=== PATIENT | male | born 1975 | race Two or more races ===

== ENCOUNTER 2017-03-26 12:58 | Emergency (ER) | payer MEDICAID, OTHER ==
[~2017-03-26] VITALS: Ht 172.7 cm; Wt 90.7 kg
[2017-03-26] MEDS ORDERED: DEXTROSE 50% SYRINGE 50 ML IV ONE (22:03)
[2017-03-27 14:19] LABS: BUN/Creatinine Ratio 12.1; Potassium 3.5 mmol/L (3.5-5.1)
[2017-03-27 15:25] LABS: Acetaminophen < 2.0 ug/mL (10-30); Salicylate < 1.7 mg/dL (2.8-20.0)
[2017-03-27 15:39] LABS: Basophils # (auto) 0.1 uL
[2017-03-27 15:45] LABS: Basophils % (auto) 0.5 % (0.0-2.0); Eosinophils # (auto) 0.1 uL; Eosinophils % (auto) 0.6 % (0.0-7.0); Hematocrit 50.6 % (41.0-53.0); Hemoglobin 17.5 g/dL (13.5-17.5); Lymphocytes # (auto) 2.8 uL; Mean Corpuscular Hemoglobin 31.8 pg (28.0-32.0); Mean Corpuscular Hgb Conc. 34.6 g/dL (32.0-36.0); Monocytes # (auto) 1.4 uL; Monocytes % (auto) 12.3 % (0.0-12.0); Neutrophils # (auto) 6.9 uL; Neutrophils % (auto) 61.6 % (37.0-80.0); Nucleated Red Blood Cells % 1.3 %; Platelet Count (auto) 228 10^3/uL (140-450); Red Cell Distribution Width 13.6 % (11.8-14.3); White Blood Cell 11.3 10^3/uL (4.4-10.8)
[2017-03-29] MEDS ORDERED: OLANZapine 5 MG TAB PO PRN (01:45)
[2017-03-30] MEDS: OLANZapine 5 MG TAB PO SCH ×2 (09:38→22:00)
[2017-03-31] MEDS ORDERED: DOCUSATE SOD 100 MG CAP PO ONE ×2 (18:15→22:10)
[2017-03-31] MEDS ORDERED: FAMOTIDINE 20 MG TAB PO ONE (18:15)
[2017-03-31] MEDS ORDERED: FAMOTIDINE 20 MG TAB ONE (22:09)
[2017-03-31] MEDS ORDERED: OLANZapine 5 MG TAB ONE (22:10)
[2017-03-31] MEDS: OLANZapine 5 MG TAB PO SCH (22:30)
[2017-04-01] MEDS ORDERED: OLANZapine 5 MG TAB ONE (23:05)
[2017-04-01] MEDS: OLANZapine 5 MG TAB PO SCH (23:14)
[2017-04-02 08:14] VITALS: BP 122/71
== END 2017-04-02 16:08 | disposition home or self-care (01) ==
LOC: ER 13:05
DX: F31.9 Bipolar disorder, unspecified (principal); F23 Brief psychotic disorder
CPT/HCPCS: 36415; 80048; 80320; 80329; 82962; 85025; 99285; J7030; J7042; 70450

== ENCOUNTER → 2023-09-25 | Outpatient (CLI) | payer MEDICAID ==
[2023-09-25 11:44] LABS: Basophils # (auto) 0.1 10 ^3/uL (0-0.2); Eosinophils # (auto) 0 10 ^3/uL (0-0.8); Hemoglobin 15.4 g/dL (13.5-17.5); Lymphocytes # (auto) 1.5 10 ^3/uL (0.4-5.4); Neutrophils # (auto) 7.6 10 ^3/uL (1.6-8.6)
[2023-09-25 11:52] LABS: Basophils % (auto) 0.8 % (0.0-2.0); Hematocrit 44.8 % (41.0-53.0); Lymphocytes % (auto) 14.9 % (10.0-50.0); Mean Corpuscular Hemoglobin 30.5 pg (28.0-32.0); Mean Corpuscular Hgb Conc. 34.3 g/dL (32.0-36.0); Monocytes % (auto) 10.2 % (0.0-12.0); Neutrophils % (auto) 74.1 % (37.0-80.0); Nucleated Red Blood Cells % 0.1 %; Red Blood Cells 5.03 10^6/uL (4.5-5.90); Red Cell Distribution Width 14.2 % (11.8-14.3); White Blood Cell 10.3 10^3/uL (4.4-10.8)
[2023-09-25 12:21] LABS: Platelet Estimate Markedly Decreased
== END | disposition home or self-care (01) ==
LOC: LAB 11:20
DX: D69.1 Qualitative platelet defects (principal)
CPT/HCPCS: 36415; 85025

== ENCOUNTER → 2023-10-23 | Outpatient (CLI) | payer MEDICAID ==
[2023-10-23 11:34] LABS: Basophils # (auto) 0 10 ^3/uL (0-0.2); Basophils % (auto) 0.6 % (0.0-2.0); Eosinophils # (auto) 0 10 ^3/uL (0-0.8); Hematocrit 43.7 % (41.0-53.0); Hemoglobin 15.1 g/dL (13.5-17.5); Lymphocytes # (auto) 1.3 10 ^3/uL (0.4-5.4); Lymphocytes % (auto) 20.6 % (10.0-50.0); Mean Corpuscular Hemoglobin 30.8 pg (28.0-32.0); Mean Corpuscular Hgb Conc. 34.5 g/dL (32.0-36.0); Mean Corpuscular Volume 89.2 fL (80.0-100.0); Monocytes # (auto) 0.7 10 ^3/uL (0-1.3); Monocytes % (auto) 10.7 % (0.0-12.0); Neutrophils # (auto) 4.4 10 ^3/uL (1.6-8.6); Neutrophils % (auto) 68.1 % (37.0-80.0); Nucleated Red Blood Cells % 0.1 %; Red Blood Cells 4.91 10^6/uL (4.5-5.90); Red Cell Distribution Width 13.9 % (11.8-14.3); White Blood Cell 6.4 10^3/uL (4.4-10.8)
[2023-10-23 11:50] LABS: Platelet Estimate Decreased
== END | disposition home or self-care (01) ==
LOC: LAB 11:04
DX: D69.1 Qualitative platelet defects (principal)
CPT/HCPCS: 36415; 85025

== ENCOUNTER → 2023-11-18 | Outpatient (CLI) | payer MEDICAID ==
[2023-11-18 12:14] LABS: Basophils # (auto) 0.1 10 ^3/uL (0-0.2); Eosinophils # (auto) 0 10 ^3/uL (0-0.8); Lymphocytes # (auto) 1.6 10 ^3/uL (0.4-5.4); Monocytes # (auto) 0.8 10 ^3/uL (0-1.3); White Blood Cell 8.4 10^3/uL (4.4-10.8)
[2023-11-18 12:16] LABS: Basophils % (auto) 0.7 % (0.0-2.0); Hematocrit 44.1 % (41.0-53.0); Hemoglobin 14.9 g/dL (13.5-17.5); Lymphocytes % (auto) 19.3 % (10.0-50.0); Mean Corpuscular Hemoglobin 30.3 pg (28.0-32.0); Mean Corpuscular Hgb Conc. 33.9 g/dL (32.0-36.0); Mean Corpuscular Volume 89.4 fL (80.0-100.0); Monocytes % (auto) 9.8 % (0.0-12.0); Neutrophils # (auto) 5.9 10 ^3/uL (1.6-8.6); Neutrophils % (auto) 70.2 % (37.0-80.0); Red Blood Cells 4.93 10^6/uL (4.5-5.90); Red Cell Distribution Width 13.3 % (11.8-14.3)
[2023-11-18 13:07] LABS: Platelet Count (auto) 110 10^3/uL (140-450)
== END | disposition home or self-care (01) ==
LOC: LAB 11:42
DX: D69.1 Qualitative platelet defects (principal)
CPT/HCPCS: 36415; 85025

== ENCOUNTER → 2023-12-16 | Outpatient (CLI) | payer MEDICAID ==
[2023-12-16 12:24] LABS: Basophils # (auto) 0 10 ^3/uL (0-0.2); Eosinophils # (auto) 0 10 ^3/uL (0-0.8); Lymphocytes # (auto) 1.4 10 ^3/uL (0.4-5.4); Monocytes # (auto) 0.7 10 ^3/uL (0-1.3); Red Cell Distribution Width 13.5 % (11.8-14.3)
[2023-12-16 12:26] LABS: Basophils % (auto) 0.6 % (0.0-2.0); Hematocrit 44.3 % (41.0-53.0); Hemoglobin 15.5 g/dL (13.5-17.5); Lymphocytes % (auto) 21.8 % (10.0-50.0); Mean Corpuscular Hemoglobin 31.3 pg (28.0-32.0); Mean Corpuscular Hgb Conc. 34.9 g/dL (32.0-36.0); Mean Corpuscular Volume 89.7 fL (80.0-100.0); Monocytes % (auto) 11.2 % (0.0-12.0); Neutrophils # (auto) 4.1 10 ^3/uL (1.6-8.6); Neutrophils % (auto) 66.4 % (37.0-80.0); Nucleated Red Blood Cells % 0.1 %; Red Blood Cells 4.93 10^6/uL (4.5-5.90); White Blood Cell 6.2 10^3/uL (4.4-10.8)
[2023-12-16 12:41] LABS: Platelet Count (auto) 95 10^3/uL (140-450)
== END | disposition home or self-care (01) ==
LOC: LAB 11:22
DX: D69.1 Qualitative platelet defects (principal)
CPT/HCPCS: 36415; 85025

== ENCOUNTER → 2024-01-13 | Outpatient (CLI) | payer MEDICAID ==
[2024-01-13 12:39] LABS: Eosinophils # (auto) 0 10 ^3/uL (0-0.8); Neutrophils % (auto) 58.9 % (37.0-80.0)
[2024-01-13 12:40] LABS: Basophils # (auto) 0.1 10 ^3/uL (0-0.2); Basophils % (auto) 0.9 % (0.0-2.0); Hematocrit 43.4 % (41.0-53.0); Hemoglobin 15.1 g/dL (13.5-17.5); Lymphocytes # (auto) 1.6 10 ^3/uL (0.4-5.4); Lymphocytes % (auto) 26.8 % (10.0-50.0); Mean Corpuscular Hemoglobin 31.1 pg (28.0-32.0); Mean Corpuscular Hgb Conc. 34.8 g/dL (32.0-36.0); Mean Corpuscular Volume 89.5 fL (80.0-100.0); Monocytes # (auto) 0.8 10 ^3/uL (0-1.3); Monocytes % (auto) 13.4 % (0.0-12.0); Neutrophils # (auto) 3.5 10 ^3/uL (1.6-8.6); Nucleated Red Blood Cells % 0.2 %; Red Blood Cells 4.85 10^6/uL (4.5-5.90); Red Cell Distribution Width 13.5 % (11.8-14.3); White Blood Cell 5.9 10^3/uL (4.4-10.8)
[2024-01-13 13:02] LABS: Platelet Count (auto) 133 10^3/uL (140-450)
== END | disposition home or self-care (01) ==
LOC: LAB 11:47
DX: D69.1 Qualitative platelet defects (principal)
CPT/HCPCS: 36415; 85025

== ENCOUNTER → 2024-02-10 | Outpatient (CLI) | payer MEDICAID ==
[2024-02-10 12:01] LABS: Basophils # (auto) 0.1 10 ^3/uL (0-0.2); Basophils % (auto) 0.8 % (0.0-2.0); Eosinophils # (auto) 0 10 ^3/uL (0-0.8); Hematocrit 46.4 % (41.0-53.0); Hemoglobin 15.8 g/dL (13.5-17.5); Lymphocytes # (auto) 1.7 10 ^3/uL (0.4-5.4); Lymphocytes % (auto) 20.8 % (10.0-50.0); Mean Corpuscular Hemoglobin 30.3 pg (28.0-32.0); Monocytes # (auto) 0.9 10 ^3/uL (0-1.3); Monocytes % (auto) 10.9 % (0.0-12.0); Neutrophils # (auto) 5.4 10 ^3/uL (1.6-8.6); Neutrophils % (auto) 67.5 % (37.0-80.0); Nucleated Red Blood Cells % 0.3 %; Red Blood Cells 5.21 10^6/uL (4.5-5.90); Red Cell Distribution Width 13.8 % (11.8-14.3)
[2024-02-10 12:37] LABS: Platelet Estimate Adequate
[2024-02-10 12:39] LABS: Platelet Count (auto) 183 10^3/uL (140-450)
== END | disposition home or self-care (01) ==
LOC: LAB 11:37
PROVIDERS: ATTEND Licensed Psychiatric Technician
DX: D69.1 Qualitative platelet defects (principal)
CPT/HCPCS: 36415; 85025

== ENCOUNTER → 2024-03-09 | Outpatient (CLI) | payer MEDICAID ==
[2024-03-09 13:02] LABS: Basophils # (auto) 0 10 ^3/uL (0-0.2); Basophils % (auto) 0.9 % (0.0-2.0); Eosinophils # (auto) 0 10 ^3/uL (0-0.8); Hematocrit 45.8 % (41.0-53.0); Hemoglobin 15.4 g/dL (13.5-17.5); Lymphocytes # (auto) 1.6 10 ^3/uL (0.4-5.4); Lymphocytes % (auto) 28.5 % (10.0-50.0); Mean Corpuscular Hemoglobin 30.2 pg (28.0-32.0); Mean Corpuscular Hgb Conc. 33.7 g/dL (32.0-36.0); Mean Corpuscular Volume 89.5 fL (80.0-100.0); Monocytes # (auto) 0.6 10 ^3/uL (0-1.3); Monocytes % (auto) 11.3 % (0.0-12.0); Neutrophils # (auto) 3.3 10 ^3/uL (1.6-8.6); Neutrophils % (auto) 59.3 % (37.0-80.0); Platelet Count (auto) 165 10^3/uL (140-450); Red Blood Cells 5.11 10^6/uL (4.5-5.90); Red Cell Distribution Width 13.6 % (11.8-14.3); White Blood Cell 5.6 10^3/uL (4.4-10.8)
== END | disposition home or self-care (01) ==
LOC: LAB 12:41
PROVIDERS: ATTEND Licensed Psychiatric Technician
DX: D69.1 Qualitative platelet defects (principal)
CPT/HCPCS: 36415; 85025

== ENCOUNTER → 2024-04-02 | Outpatient (CLI) | payer MEDICAID ==
[2024-04-02 12:38] LABS: Eosinophils # (auto) 0 10 ^3/uL (0-0.8)
[2024-04-02 12:49] LABS: Basophils # (auto) 0.1 10 ^3/uL (0-0.2); Monocytes # (auto) 0.7 10 ^3/uL (0-1.3); Nucleated Red Blood Cells % 0.1 %
[2024-04-02 12:52] LABS: Basophils % (auto) 0.8 % (0.0-2.0); Hematocrit 43.6 % (41.0-53.0); Lymphocytes % (auto) 28.4 % (10.0-50.0); Mean Corpuscular Hemoglobin 30.7 pg (28.0-32.0); Mean Corpuscular Hgb Conc. 34.4 g/dL (32.0-36.0); Mean Corpuscular Volume 89.1 fL (80.0-100.0); Monocytes % (auto) 9.8 % (0.0-12.0); Neutrophils # (auto) 4.3 10 ^3/uL (1.6-8.6); Red Cell Distribution Width 13.2 % (11.8-14.3); White Blood Cell 7.1 10^3/uL (4.4-10.8)
[2024-04-02 12:55] LABS: Platelet Count (auto) 145 10^3/uL (140-450)
== END | disposition home or self-care (01) ==
LOC: LAB 12:05
DX: D69.1 Qualitative platelet defects (principal)
CPT/HCPCS: 36415; 85025

== ENCOUNTER → 2024-05-04 | Outpatient (CLI) | payer MEDICAID ==
[2024-05-04 12:27] LABS: Basophils # (auto) 0.1 10 ^3/uL (0-0.2); Basophils % (auto) 1.2 % (0.0-2.0); Eosinophils # (auto) 0 10 ^3/uL (0-0.8); Hematocrit 44.7 % (41.0-53.0); Hemoglobin 15.2 g/dL (13.5-17.5); Lymphocytes # (auto) 1.8 10 ^3/uL (0.4-5.4); Lymphocytes % (auto) 30.7 % (10.0-50.0); Mean Corpuscular Hemoglobin 30.1 pg (28.0-32.0); Mean Corpuscular Hgb Conc. 33.9 g/dL (32.0-36.0); Mean Corpuscular Volume 88.9 fL (80.0-100.0); Monocytes # (auto) 0.8 10 ^3/uL (0-1.3); Monocytes % (auto) 14.4 % (0.0-12.0); Neutrophils # (auto) 3.1 10 ^3/uL (1.6-8.6); Neutrophils % (auto) 53.7 % (37.0-80.0); Nucleated Red Blood Cells % 0.1 %; Red Blood Cells 5.03 10^6/uL (4.5-5.90); Red Cell Distribution Width 13.2 % (11.8-14.3); White Blood Cell 5.9 10^3/uL (4.4-10.8)
[2024-05-04 12:32] LABS: Platelet Count (auto) 129 10^3/uL (140-450)
[2024-05-04 13:02] LABS: Platelet Estimate Adequate
== END | disposition home or self-care (01) ==
LOC: LAB 12:11
PROVIDERS: ATTEND Internal Medicine Hematology & Oncology
DX: D69.6 Thrombocytopenia, unspecified (principal)
CPT/HCPCS: 36415; 85025

== ENCOUNTER → 2024-06-01 | Outpatient (CLI) | payer MEDICAID ==
[2024-06-01 12:17] LABS: Basophils # (auto) 0.1 10 ^3/uL (0-0.2); Eosinophils # (auto) 0 10 ^3/uL (0-0.8); Hemoglobin 15.7 g/dL (13.5-17.5); Lymphocytes # (auto) 1.8 10 ^3/uL (0.4-5.4); Mean Corpuscular Hemoglobin 29.6 pg (28.0-32.0); Monocytes % (auto) 12.2 % (0.0-12.0)
[2024-06-01 12:20] LABS: Basophils % (auto) 1.2 % (0.0-2.0); Hematocrit 46.6 % (41.0-53.0); Mean Corpuscular Hgb Conc. 33.7 g/dL (32.0-36.0); Monocytes # (auto) 0.8 10 ^3/uL (0-1.3); Neutrophils # (auto) 3.6 10 ^3/uL (1.6-8.6); Neutrophils % (auto) 57.6 % (37.0-80.0); Nucleated Red Blood Cells % 0.5 %; Red Cell Distribution Width 13.5 % (11.8-14.3); White Blood Cell 6.2 10^3/uL (4.4-10.8)
[2024-06-01 13:58] LABS: Platelet Estimate Adequate
[2024-06-01 13:59] LABS: Platelet Count (auto) 166 10^3/uL (140-450)
== END | disposition home or self-care (01) ==
LOC: LAB 11:50
PROVIDERS: ATTEND Internal Medicine Hematology & Oncology
DX: D69.6 Thrombocytopenia, unspecified (principal)
CPT/HCPCS: 36415; 85025

== ENCOUNTER → 2024-06-11 | Outpatient (CLI) | payer MEDICAID ==
[2024-06-11 12:52] LABS: Basophils # (auto) 0.1 10 ^3/uL (0-0.2); Eosinophils # (auto) 0 10 ^3/uL (0-0.8); Lymphocytes # (auto) 1.4 10 ^3/uL (0.4-5.4); Monocytes # (auto) 1.2 10 ^3/uL (0-1.3)
[2024-06-11 12:55] LABS: Basophils % (auto) 0.7 % (0.0-2.0); Hematocrit 45.5 % (41.0-53.0); Hemoglobin 15.7 g/dL (13.5-17.5); Lymphocytes % (auto) 14.3 % (10.0-50.0); Mean Corpuscular Hemoglobin 30.2 pg (28.0-32.0); Mean Corpuscular Hgb Conc. 34.4 g/dL (32.0-36.0); Mean Corpuscular Volume 87.8 fL (80.0-100.0); Monocytes % (auto) 12.4 % (0.0-12.0); Neutrophils # (auto) 7.2 10 ^3/uL (1.6-8.6); Neutrophils % (auto) 72.6 % (37.0-80.0); Nucleated Red Blood Cells % 0.3 %; Red Blood Cells 5.18 10^6/uL (4.5-5.90); White Blood Cell 9.9 10^3/uL (4.4-10.8)
[2024-06-11 13:09] LABS: Platelet Count (auto) 128 10^3/uL (140-450)
[2024-06-11 13:52] LABS: % Iron Saturation 27.1 % (20-55)
[2024-06-11 13:53] LABS: Alanine Aminotransferase 31 U/L (7-40); Albumin 4.5 g/dL (3.2-4.8); Alkaline Phosphatase 91 U/L (46-116); Anion Gap 8 (5-15); Aspartate Aminotransferase 28 U/L (13-40); BUN/Creatinine Ratio 9.2 (10.0-20.0); Blood Urea Nitrogen 11 mg/dL (9-23); Calcium 10.1 mg/dL (8.7-10.4); Carbon Dioxide 26 mmol/L (20-31); Glucose 87 mg/dL (74-106); Potassium 4.3 mmol/L (3.5-5.1); Sodium 141 mmol/L (136-145); Total Protein 6.6 g/dL (5.7-8.2)
[2024-06-11 13:54] LABS: Bilirubin, Total 0.6 mg/dL (0.2-1.0); Chloride 107 mmol/L (98-107)
[2024-06-11 13:58] LABS: Ferritin 111.5 ng/mL (22-322)
[2024-06-11 14:15] LABS: Folate (Folic Acid) 36.52 ng/mL (>5.38)
[2024-06-11 14:27] LABS: Wright Stain Ready for Review
[2024-06-12 08:07] LABS: Rheumatoid Arthritis Factor <10.0 IU/mL (<14.0)
[2024-06-12 12:07] LABS: Anti-Nuclear Antibody Direct Negative (Negative)
== END | disposition home or self-care (01) ==
LOC: LAB 12:13
PROVIDERS: ATTEND Internal Medicine Hematology & Oncology
DX: D69.6 Thrombocytopenia, unspecified (principal)
CPT/HCPCS: 36415; 80053; 82306; 82607; 82728; 82746; 83540; 83550; 85025; 86038; 86431; 86703

== ENCOUNTER → 2024-06-30 | Outpatient (CLI) | payer MEDICAID ==
[2024-06-30 10:42] LABS: Basophils # (auto) 0 10 ^3/uL (0-0.2); Basophils % (auto) 0.7 % (0.0-2.0); Eosinophils # (auto) 0 10 ^3/uL (0-0.8); Lymphocytes # (auto) 1.5 10 ^3/uL (0.4-5.4); Lymphocytes % (auto) 25.6 % (10.0-50.0); Mean Corpuscular Hemoglobin 30.4 pg (28.0-32.0); Mean Corpuscular Volume 89.4 fL (80.0-100.0); Monocytes # (auto) 0.5 10 ^3/uL (0-1.3); Monocytes % (auto) 8.4 % (0.0-12.0); Neutrophils # (auto) 3.7 10 ^3/uL (1.6-8.6); Neutrophils % (auto) 65.3 % (37.0-80.0); Nucleated Red Blood Cells % 0.1 %; Platelet Count (auto) 94 10^3/uL (140-450); Red Blood Cells 4.92 10^6/uL (4.5-5.90); Red Cell Distribution Width 13.5 % (11.8-14.3); White Blood Cell 5.7 10^3/uL (4.4-10.8)
== END | disposition home or self-care (01) ==
LOC: LAB 10:20
PROVIDERS: ATTEND Internal Medicine Hematology & Oncology
DX: D69.6 Thrombocytopenia, unspecified (principal)
CPT/HCPCS: 36415; 85025

== ENCOUNTER → 2024-07-27 | Outpatient (CLI) | payer MEDICAID ==
[2024-07-27 12:09] LABS: Basophils # (auto) 0.1 10 ^3/uL (0-0.2); Eosinophils # (auto) 0 10 ^3/uL (0-0.8); Hematocrit 46.8 % (41.0-53.0); Lymphocytes # (auto) 1.6 10 ^3/uL (0.4-5.4); Lymphocytes % (auto) 27.9 % (10.0-50.0); Mean Corpuscular Hemoglobin 30.1 pg (28.0-32.0); Mean Corpuscular Hgb Conc. 34.2 g/dL (32.0-36.0); Mean Corpuscular Volume 87.9 fL (80.0-100.0); Monocytes # (auto) 0.7 10 ^3/uL (0-1.3); Monocytes % (auto) 12.2 % (0.0-12.0); Neutrophils # (auto) 3.3 10 ^3/uL (1.6-8.6); Neutrophils % (auto) 58.9 % (37.0-80.0); Nucleated Red Blood Cells % 0.3 %; Platelet Count (auto) 152 10^3/uL (140-450); Red Blood Cells 5.32 10^6/uL (4.5-5.90); Red Cell Distribution Width 13.7 % (11.8-14.3); White Blood Cell 5.6 10^3/uL (4.4-10.8)
[2024-07-27 12:28] LABS: Platelet Estimate Adequate
== END | disposition home or self-care (01) ==
LOC: LAB 11:57
PROVIDERS: ATTEND Internal Medicine Hematology & Oncology
DX: Z51.81 Encounter for therapeutic drug level monitoring (principal); D69.6 Thrombocytopenia, unspecified; G43.809 Other migraine, not intractable, without status migrainosus; R00.2 Palpitations; F99 Mental disorder, not otherwise specified; R68.89 Other general symptoms and signs
CPT/HCPCS: 36415; 85025

== ENCOUNTER → 2024-08-21 | Outpatient (CLI) | payer MEDICAID ==
[2024-08-21 11:23] LABS: Basophils # (auto) 0 10 ^3/uL (0-0.2); Basophils % (auto) 0.7 % (0.0-2.0); Eosinophils # (auto) 0 10 ^3/uL (0-0.8); Hematocrit 45.2 % (41.0-53.0); Hemoglobin 15.5 g/dL (13.5-17.5); Lymphocytes # (auto) 1.4 10 ^3/uL (0.4-5.4); Lymphocytes % (auto) 29.8 % (10.0-50.0); Mean Corpuscular Hemoglobin 30.1 pg (28.0-32.0); Mean Corpuscular Hgb Conc. 34.2 g/dL (32.0-36.0); Mean Corpuscular Volume 88.1 fL (80.0-100.0); Monocytes # (auto) 0.5 10 ^3/uL (0-1.3); Monocytes % (auto) 9.5 % (0.0-12.0); Neutrophils # (auto) 2.9 10 ^3/uL (1.6-8.6); Nucleated Red Blood Cells % 0.1 %; Red Blood Cells 5.13 10^6/uL (4.5-5.90); Red Cell Distribution Width 13.5 % (11.8-14.3); White Blood Cell 4.8 10^3/uL (4.4-10.8)
[2024-08-21 11:28] LABS: Platelet Count (auto) 113 10^3/uL (140-450)
== END | disposition home or self-care (01) ==
LOC: LAB 10:52
PROVIDERS: ATTEND Internal Medicine Hematology & Oncology
DX: D69.6 Thrombocytopenia, unspecified (principal); G43.809 Other migraine, not intractable, without status migrainosus; R00.2 Palpitations; F99 Mental disorder, not otherwise specified; Z51.81 Encounter for therapeutic drug level monitoring; R68.89 Other general symptoms and signs
CPT/HCPCS: 36415; 85025

== ENCOUNTER 2024-09-17 12:10 | Outpatient (CLI) | payer MEDICAID ==
[2024-09-17 12:33] LABS: Basophils # (auto) 0.1 10 ^3/uL (0-0.2); Eosinophils # (auto) 0 10 ^3/uL (0-0.8); Hematocrit 44.9 % (41.0-53.0); Hemoglobin 15.5 g/dL (13.5-17.5); Lymphocytes # (auto) 1.5 10 ^3/uL (0.4-5.4); Lymphocytes % (auto) 25.7 % (10.0-50.0); Mean Corpuscular Hemoglobin 30.1 pg (28.0-32.0); Mean Corpuscular Hgb Conc. 34.6 g/dL (32.0-36.0); Mean Corpuscular Volume 86.9 fL (80.0-100.0); Monocytes # (auto) 0.7 10 ^3/uL (0-1.3); Monocytes % (auto) 12.8 % (0.0-12.0); Neutrophils # (auto) 3.5 10 ^3/uL (1.6-8.6); Neutrophils % (auto) 60.5 % (37.0-80.0); Nucleated Red Blood Cells % 0.2 %; Red Blood Cells 5.16 10^6/uL (4.5-5.90); White Blood Cell 5.7 10^3/uL (4.4-10.8)
[2024-09-17 12:41] LABS: Platelet Count (auto) 140 10^3/uL (140-450)
[2024-09-17 13:02] LABS: Platelet Estimate Adequate
== END 2024-09-17 17:00 | disposition home or self-care (01) ==
LOC: LAB 12:10
PROVIDERS: ATTEND Internal Medicine
DX: D69.6 Thrombocytopenia, unspecified (principal); G43.809 Other migraine, not intractable, without status migrainosus; D00.2 Carcinoma in situ of stomach; R68.89 Other general symptoms and signs; F99 Mental disorder, not otherwise specified; Z51.81 Encounter for therapeutic drug level monitoring
CPT/HCPCS: 36415; 85025

== ENCOUNTER 2024-10-15 12:18 | Outpatient (CLI) | payer MEDICAID ==
[2024-10-15 12:42] LABS: Hematocrit 46.0 % (41.0-53.0); Hemoglobin 15.6 g/dL (13.5-17.5); Mean Corpuscular Hemoglobin 29.7 pg (28.0-32.0); Mean Corpuscular Volume 87.2 fL (80.0-100.0); Nucleated Red Blood Cells % 0.1 %
== END 2024-10-15 17:00 | disposition home or self-care (01) ==
LOC: LAB 12:18
PROVIDERS: ATTEND Internal Medicine Hematology & Oncology
DX: D69.6 Thrombocytopenia, unspecified (principal); G43.809 Other migraine, not intractable, without status migrainosus; R68.89 Other general symptoms and signs; R00.2 Palpitations; F99 Mental disorder, not otherwise specified; Z51.81 Encounter for therapeutic drug level monitoring
CPT/HCPCS: 36415; 85025

== ENCOUNTER 2024-11-12 12:08 | Outpatient (CLI) | payer MEDICAID ==
[2024-11-12 12:24] LABS: Hematocrit 46.7 % (41.0-53.0); Hemoglobin 16.2 g/dL (13.5-17.5); Mean Corpuscular Hemoglobin 29.8 pg (28.0-32.0); Mean Corpuscular Volume 86.1 fL (80.0-100.0); Nucleated Red Blood Cells % 0.3 %
== END 2024-11-12 17:00 | disposition home or self-care (01) ==
LOC: LAB 12:08
PROVIDERS: ATTEND Internal Medicine Hematology & Oncology
DX: D69.6 Thrombocytopenia, unspecified (principal); G43.809 Other migraine, not intractable, without status migrainosus; R00.2 Palpitations; R68.89 Other general symptoms and signs; F99 Mental disorder, not otherwise specified; Z51.81 Encounter for therapeutic drug level monitoring
CPT/HCPCS: 36415; 85025

== ENCOUNTER → 2024-12-10 | Outpatient (CLI) | payer MEDICAID ==
[2024-12-10 12:31] LABS: Hematocrit 44.9 % (41.0-53.0); Hemoglobin 15.7 g/dL (13.5-17.5); Mean Corpuscular Hemoglobin 30.1 pg (28.0-32.0); Mean Corpuscular Volume 85.9 fL (80.0-100.0); Nucleated Red Blood Cells % 0.1 %
== END | disposition home or self-care (01) ==
LOC: LAB 12:19
PROVIDERS: ATTEND Internal Medicine Hematology & Oncology
DX: D69.6 Thrombocytopenia, unspecified (principal); G43.809 Other migraine, not intractable, without status migrainosus; R00.2 Palpitations; R68.89 Other general symptoms and signs; F99 Mental disorder, not otherwise specified; Z51.81 Encounter for therapeutic drug level monitoring
CPT/HCPCS: 36415; 85025

== ENCOUNTER 2025-02-04 12:14 | Outpatient (CLI) | payer MEDICAID ==
[2025-02-04 12:41] LABS: Hematocrit 44.2 % (41.0-53.0); Hemoglobin 15.3 g/dL (13.5-17.5); Mean Corpuscular Hemoglobin 30.0 pg (28.0-32.0); Mean Corpuscular Volume 86.6 fL (80.0-100.0); Nucleated Red Blood Cells % 0.1 %
== END 2025-02-04 17:00 | disposition home or self-care (01) ==
LOC: LAB 12:14
PROVIDERS: ATTEND Internal Medicine Hematology & Oncology
DX: D69.6 Thrombocytopenia, unspecified (principal); G43.809 Other migraine, not intractable, without status migrainosus; R00.2 Palpitations; F99 Mental disorder, not otherwise specified; R68.89 Other general symptoms and signs; Z51.81 Encounter for therapeutic drug level monitoring
CPT/HCPCS: 36415; 85025

== ENCOUNTER → 2025-03-04 | Outpatient (CLI) | payer MEDICAID ==
[2025-03-04 12:59] LABS: Hemoglobin 15.4 g/dL (13.5-17.5); Nucleated Red Blood Cells % 0.1 %
[2025-03-04 13:01] LABS: Hematocrit 44.9 % (41.0-53.0); Mean Corpuscular Hemoglobin 29.7 pg (28.0-32.0); Mean Corpuscular Volume 86.5 fL (80.0-100.0)
== END | disposition home or self-care (01) ==
LOC: LAB 12:08
PROVIDERS: ATTEND Internal Medicine
DX: D69.6 Thrombocytopenia, unspecified (principal); G43.809 Other migraine, not intractable, without status migrainosus; R00.2 Palpitations; F99 Mental disorder, not otherwise specified; Z51.81 Encounter for therapeutic drug level monitoring; R68.89 Other general symptoms and signs
CPT/HCPCS: 36415; 85025